=== PATIENT | female | born 1980 | race Caucasian/White ===

== ENCOUNTER 2020-02-13 18:15 | Emergency (ER) | payer SELFPAY ==
[~2020-02-13] VITALS: Ht 162.6 cm; Wt 92.1 kg
[2020-02-13 18:22] VITALS: Ht 162.6 cm; Wt 92.1 kg
[2020-02-13 19:03] LABS: PLATELET COUNT 197 x10^3mcL (130-400); RED CELL DISTRIBUTION WIDTH 20.8 % (11.5-14.5)
[2020-02-13 19:16] LABS: CARBON DIOXIDE 29.7 mmol/L (21-32); CHLORIDE SERUM 103 mmol/L (98-107); CREATININE SERUM 0.8 mg/dL (0.6-1.0); GFR1 > 60 mL/min; GLUCOSE SERUM 106 mg/dL (74-106); SODIUM SERUM 139 mmol/L (136-145)
[2020-02-13 19:36] LABS: ALBUMIN 3.7 g/dL (3.4-5.0); AST/SGOT 16 U/L (15-37); BILIRUBIN TOTAL 0.19 mg/dL (0.20-1.00); TOTAL PROTEIN, SERUM 7.7 g/dL (6.4-8.2)
[2020-02-13 19:37] LABS: ALKALINE PHOSPHATASE 82 U/L (46-116); ALT/SGPT 22 U/L (14-59)
[2020-02-13 21:06] VITALS: BP 144/82
== END 2020-02-13 21:05 | disposition home or self-care (01) ==
LOC: ED 18:15
PROVIDERS: Student in an Organized Health Care Education/Training Program
DX: I10 Essential (primary) hypertension (principal); E11.9 Type 2 diabetes mellitus without complications; E03.9 Hypothyroidism, unspecified; Z98.51 Tubal ligation status